=== PATIENT | female | born 1955 | race African-American/Black ===

== ENCOUNTER 2019-07-25 16:26 | Emergency (ER) | payer MEDICAID ==
[~2019-07-25] VITALS: Ht 175.3 cm; Wt 160.0 kg
[2019-07-25] MEDS ORDERED: ONDANSETRON HCL 4MG/2ML INJ IV STA (18:21)
[2019-07-25] MEDS ORDERED: KETOROLAC 30MG/ML VIAL IV STA (18:21)
[2019-07-25] MEDS ORDERED: SODIUM CHLORIDE 0.9% 1,000 ML IV ONE (18:21)
[2019-07-25 19:04] LABS: HEMATOCRIT. 44.8 % (36.0-48.0); MEAN CORPUSCULAR HEMOGLOBIN 27.7 pg (28.0-32.0); MEAN CORPUSCULAR VOLUME 88.8 fL (81.0-99.0); MEAN PLATELET VOLUME 9.4 fl (7.4-10.4); PLATELET 292 x1000/uL (130-400); RED BLOOD CELL COUNT 5.05 mill/uL (4.2-5.4); RED CELL DISTRIBUTION WIDTH 14.3 % (11.6-14.6)
[2019-07-25 19:51] LABS: PLATELET ESTIMATE NORMAL
[2019-07-25 19:52] LABS: CHLORIDE 105 mEq/L (98-107)
[2019-07-25 20:00] VITALS: BP 137/80
[2019-07-25] MEDS ORDERED: MAGNESIUM/ALUMINUM HYDROXIDE/SIMETHICONE 30ML UDC PO ONE (20:45)
[2019-07-25 22:35] LABS: CLARITY URINE CLOUDY (CLEAR); COLOR URINE YELLOW (YELLOW); KETONES URINE NEGATIVE (NEGATIVE); LEUKOCYTE ESTERASE URINE NEGATIVE (NEGATIVE); NITRITE URINE NEGATIVE (NEGATIVE); OCCULT BLOOD URINE NEGATIVE (NEGATIVE); PROTEIN URINE 2+ (NEGATIVE); SPECIFIC GRAVITY URINE 1.021 (1.005-1.030); UROBILINOGEN URINE 0.2 E.U./dL (0.2-1.0)
== END 2019-07-26 00:03 | disposition home or self-care (01) ==
LOC: ER 16:26
DX: R11.2 Nausea with vomiting, unspecified (principal); R10.9 Unspecified abdominal pain; I10 Essential (primary) hypertension; E66.01 Morbid (severe) obesity due to excess calories; Z68.43 Body mass index [BMI] 50.0-59.9, adult
CPT/HCPCS: 36415; 80053; 81003; 83690; 85025; 96361; 96374; 96375; 99283; J1885; J2405; J7030